=== PATIENT | male | born 1965 | race Caucasian/White ===

== ENCOUNTER 2016-11-30 15:54 | Outpatient (CLI) | payer OTHER ==
--- NOTE | 2016-11-30 16:12 | DIAGNOSTIC IMAGING REPORT ---
PROCEDURE: XR SHOULDER 2 OR MORE VW-RIGHT INDICATION: RIGHT SHOULDER PAIN TECHNIQUE: Four views. COMPARISON: None. FINDINGS: Osseous structures and joint spaces are normal. IMPRESSION: 1. Normal right shoulder.
== END 2016-11-30 23:00 ==
LOC: XR SRH 15:54
DX: M25.511 Pain in right shoulder (principal)